=== PATIENT | male | born 1990 | race American Indian/Alaskan Native ===

== ENCOUNTER 2019-11-19 11:34 | Emergency (ER) | payer SELFPAY ==
[2019-11-19 11:49] VITALS: BP 115/57
--- NOTE | 2019-11-19 13:11 | Emergency Department Report ---
Chief Complaint: Urogenital-Male Stated Complaint: STD CHECK Time Seen by Provider: 11/19/19 13:06 - HPI History of Present Illness: 29-year-old -[place] male presents to the emergency room stating he would like an STD check. Patient denies any pain or penile discharge. - Exam Vital Signs: Vital Signs 11/19/19 11:48 Temperature 98.4 F Pulse Rate 81 Respiratory 18 Rate Blood Pressure 115/57 O2 Sat by Pulse 99 Oximetry Physical Exam: Patient is alert and oriented x3 no acute distress nontoxic in appearance. Patient has no labored breathing. Patient is ambulatory without difficulties MSE screening note: Focused history and physical exam performed. Due to findings the following was ordered: 29-year-old -Sy[place] male presents to the emergency room stating he would like an STD check. Patient denies any pain or penile discharge. Patient was referred to the [facility] department on [address]. ED Disposition for MSE Is pt being admited?: No Does the pt Need Aspirin: No Condition: Stable
== END 2019-11-19 13:30 | disposition left against medical advice (07) ==
LOC: ED 11:34
DX: Z53.21 Procedure and treatment not carried out due to patient leaving prior to being seen by health care provider (principal)